=== PATIENT | female | born 1965 | race Caucasian/White ===

== ENCOUNTER → 2023-06-07 09:10 | Outpatient (BNVA) | payer OTHER, SELFPAY | PROVIDERS: Visit Provider Physician Assistant Surgical ==

== ENCOUNTER 2023-08-31 14:19 | Outpatient (AMB) | payer OTHER, SELFPAY ==
--- NOTE | 2023-08-31 14:22 | A.OFFVIS_ITS ---
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 She heard about our program from her PCP. Her goal is to lose weight and achieve a healthy lifestyle as well as to improve, if not resolve, obesity related medical conditions, including recently diagnosed JANNETH, awaiting CPAP. She reports first being concerned about her weight over the last 3 years, highest weight to date was 227. Current weight is 227 pounds with a BMI of 36.6. She has tried multiple methods of weight loss including fad diets without permanent results. She lives with her . 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 She wakes at:?730 am, and goes to bed at?9 pm. Dinner is at 5-6 pm. Breakfast: skip AM snack: bagel, toasted w butter or BB muffin Lunch: Cheeseburger or salad or fish sandwhich, restaurant food PM snack: chips, pretzels, candy, cake Dinner: steak, salad, pork chop meatloaf, chicken After dinner: ice cream Other snacks: as above Liquids: 16 oz water, 20 oz diet soda daily, no juice Alcohol/marijuana/tobacco intake: no etoh, no cannabis, no tobacco Exercise: walk 2 x per week 2.5 miles GERD score: 18 PRICILLA score: 0 ESS score: 8 QOL score: 83 PFSH Surgical History (Updated 08/31/23 @ 15:36 by ETHAN Diana) Hx of plastic surgery Hx of cholecystectomy Hx of eye surgery Hx of hand surgery Hx of breast reduction, elective History of breast lift Hx of thyroidectomy Family History Mother No problems noted. Father COPD (chronic obstructive pulmonary disease) Heart disease Son No problems noted. Son No problems noted. Social History Alcohol intake: former Patient Tobacco Use Status: Former Tobacco user Quit Date: 11 YEARS AGO Review of Systems Const All systems reviewed & are unremarkable except as noted in HPI and below Physical Exam Const General: cooperative, healthy appearing and no acute distress Orientation/consciousness: patient oriented x3 HEENT Head: Yes normal to inspection Ears: hearing grossly normal bilaterally General nose exam: Normal external nose present Face and sinus: Yes normal facial exam Eyes General: appearance normal, both eyes and all related structures Resp Effort & Inspection: normal respiratory effort Auscultation: clear to auscultation bilaterally Cardio Rate: regular rate Rhythm: regular rhythm Heart sounds: S1 normal heart sound present and S2 normal heart sound present GI Inspection: Yes normal to inspection, No distended and Yes obesity Palpation (GI): Soft to palpation, nontender and no guarding Auscultation: normal bowel sounds Skin General skin exam: no rashes or lesions noted Neuro General: patient oriented x3 Extrem General: No edema Psych Appearance: grossly normal Mental Status: mental status grossly normal Speech and movement: Normal speech and movement present Affect: normal affect Attitude: cooperative Assessment & Plan Assessment & Plan (1) Obesity (BMI 30-39.9): Code(s): E66.9 - Obesity, unspecified Plan: This is a?58 yo female who will start our SWL program to prepare for bariatric surgery.? Blood work, h pylori , CXR, ECG, Abd US and UGI have been ordered. She is being scheduled for RD and BH initial consultations. She will start SWL classes and watch the first three videos before her next appointment. ? Adequate sleep of 7-8 hours per night discussed, awakening at 730 am and going to bed around 9 pm ? Purchase body composition analyzer scale ([employer] recommended) and check weight weekly. The best time to do this is first thing in the morning after going to the bathroom. 1. Nutritional counseling: Be sure to careful read the number of scoops per shake Start with 1 Celebrate rebuild shake ([facility] [employer], [employer], [employer]), (2 scoop in 20 oz unsweetened almond milk) at 830am-1030am 2 protein bars (Celebrate bars at [facility] gift shop, [employer], [employer]) First bar at 1130am-130pm. Second bar at 230pm-430pm Dinner at 530pm (8 forks of protein and 8 forks of salad/vegetables). Meal to include lean meat (beef, fish, pork, turkey, chicken), cooked vegetables or a salad with olive oil and/or fruits (berries, pears, apples, kiwi). Avoid salt, breads, potatoes, rice, pasta, desserts. Try to drink 64 oz of water daily and avoid soda and juices. ?2. Each shake would be drunk slowly, like coffee in a period of 2 hours. ?3. Cut each bar in 4 pieces and eat each piece in 30 min ?to make each bar last 2 hours. ?4. I emphasized the importance of measuring accurately the food portion and measure it carefully when serving the food on the plate ?5. The meal portions include 8 full-size forks of meat and 8 full-size forks of salad. You always eat the meat portion but you can replace up to half of the forks of salad/vegetables with rice, potatoes or pasta, or a fruit ?if you like. The less you do it the better weight loss will be. ?6. One full-size fork is what can be scooped on the fork without falling aside and not what can be bit with the fork. Use regular forks like those you find in a typical restaurant. ?7.? Please send me weight measurements as soon as possible and then once a week. Always include your diet and exercise plan. Alternatively come weekly at the office for weight checks and send me the measurements. ?8. Exercise counseling: Begin by watching a stretching for beginners video. Start slowly and begin to stretch your muscles. You should do this before and after each exercise session to prevent injury. Please go to the community gym in your complex near your home. Ask the senior relationship manager or one of the trainers how to use the machines if you are unfamiliar with them. Start elliptical with a resistance of 2. Increase resistance by 1 every 3 min to your most comfortable resistance with a max resistance of 8. Reduce the resistance by 1 every 3 minutes back down to 2 and repeat cycles for 300 calories. Alternatively, start treadmill with a speed of 3.0 and incline of 0, increasing incline by 1 every 3 minutes to the highest comfortable level (max 6 for now) then decrease in the same fashion. Repeat process to a goal of 300 calories. Goal of 2000 calories burned or more weekly. You may also consider use of the stationary bike. The easiest would be to chose the fat-burn or interval training program on the machine and do this until you reach the 300 calorie goal. Alternatively, you can manually adjust the resistance in a similar fashion as mentioned above, (resistance of 2-8 with a goal speed of 12 mph). Tracking calories is essential. 9. Alternatively start walking outside daily, tracking calories with a goal of 300 calories per day, daily. You can download the saul [employer] which can track your time, distance and calories while walking outside. You press start in the saul when you start and then stop when you are finished. 10.? It is important to get a copy of the sleep study you had showing you had sleep apnea and bring this to your next appointment or call the office to have it faxed over. Phone number for the office is [phone] 11. Please get labs, EKG and chest X-Ray within 1 week. 12. Discussed and answered all questions regarding?obtained consent to participate in the [facility]?Registry. 13. Please follow the diet plan exactly, without any change. If you do not like something about the plan or you feel hungry, you need to communicate with me so I can help you revise the plan. You should not change the plan yourself. Text me at [phone] 14. Goal is to lose at least 12 pounds in the first month 15. Goal is to lose 10% of your weight before surgery, which is about 22 lbs. Ultimate weight goal: 205 lbs before surgery Patient is morbidly obese and is not considered stable at this time.?I spent a total of 70 minutes reviewing/updating records, examining the patient and counseling the patient on weight management as detailed above. (2) JANNETH (obstructive sleep apnea): Code(s): G47.33 - Obstructive sleep apnea (adult) (pediatric) Plan: recent dx, will get copy of study for our records Coding Level of Care Code New Pt Level 5 (24676) Diagnoses Obesity (BMI 30-39.9) E66.9 JANNETH (obstructive sleep apnea) G47.33 Time Spent (min) 70
[2023-08-31 14:50] VITALS: BP 169/89; PULSE 94; TEMP 36.3; O2SAT 95; BMI 36.6
== END 2023-08-31 16:22 | disposition home or self-care (01) ==
PROVIDERS: Visit Provider Physician Assistant Surgical
DX: E66.9 Obesity, unspecified (principal); Z68.36 Body mass index [BMI] 36.0-36.9, adult; G47.33 Obstructive sleep apnea (adult) (pediatric)
CPT/HCPCS: 99205

== ENCOUNTER → 2023-08-31 14:19 | Outpatient (BNVA) | payer OTHER, SELFPAY | PROVIDERS: Visit Provider Physician Assistant Surgical ==